=== PATIENT | male | born 1940 | race Two or more races ===

== ENCOUNTER → 2017-12-24 | Emergency (ER) | payer OTHER ==
[~2017-12-24] VITALS: Ht 167.6 cm; Wt 63.5 kg
[~2017-12-24] MED LIST: AVALIDE 150/12.1 TAB PO; GLIPIZIDE5 MG PO; NEURONTIN300 MG PO; RENALCAL250 M1 PO
== END | disposition left against medical advice (07) ==
LOC: ER 10:51
DX: Z53.20 Procedure and treatment not carried out because of patient's decision for unspecified reasons (principal)